=== PATIENT | female | born 1985 | race Caucasian/White ===

== ENCOUNTER 2020-10-28 19:32 | Emergency (ER) | payer SELFPAY ==
[2020-10-28] MEDS ORDERED: Acetaminophen 500 MG TAB ONE (20:35)
[2020-10-28] MEDS ORDERED: Ibuprofen 200 MG TAB ONE (20:35)
[2020-10-28 21:36] LABS: Pregnancy Test - Urine (BHCG) Negative (Negative); Pregu Control Background? CLEAR/WHITE (CLR/WHITE); Pregu Control Bar Appear? YES (CONTROL BAR); Specific Gravity 1.005 (1.002-1.036)
[2020-10-28 21:39] LABS: BHCG - Serum Negative (NEGATIVE); Pregs Control Background? CLEAR/WHITE (CLR/WHITE); Pregs Control Bar Appear? YES (CONTROL BAR)
== END 2020-10-28 21:54 | disposition home or self-care (01) ==
LOC: CSHERS 19:32
DX: R51.9 Headache, unspecified (principal)
CPT/HCPCS: 36415; 70450; 81025; 84703

== ENCOUNTER 2022-01-05 04:51 | Emergency (ER) | payer SELFPAY ==
[2022-01-05] MEDS ORDERED: predniSONE 20 MG TAB ONE (05:37)
== END 2022-01-05 06:26 | disposition home or self-care (01) ==
LOC: CSHERS 04:51
DX: U07.1 COVID-19 (principal); J01.90 Acute sinusitis, unspecified; B96.89 Other specified bacterial agents as the cause of diseases classified elsewhere
CPT/HCPCS: 71046; 87804; J7512; U0003; U0005